=== PATIENT | female | born 1985 | race Caucasian/White ===

== ENCOUNTER 2017-11-11 08:17 | Emergency (ER) | payer SELFPAY ==
[2017-11-11] MEDS ORDERED: DEXAMETHASONE 10 MG/ML VIAL ONE (08:55)
--- NOTE | 2017-11-11 09:23 | ER ---
Nurse's Notes [facility] Name: Haley Mario Age: 32 yrs Sex: Female : 1985 Arrival Date: 11/11/2017 Time: 08:22 Bed 18 Private MD: Diagnosis: Acute pharyngitis Presentation: 11/11 08:33 Presenting complaint: Patient states: sore throat, congestion, fever, cough, clear to ch whitish sputum for the past 2 days. Transition of care: patient was not received from another setting of care. Onset of symptoms was November 09, 2017. Care prior to arrival: None. 08:33 Method Of Arrival: Ambulatory 08:33 Acuity: LILIBETH 4 ch Triage Assessment: 08:35 General: Appears in no apparent distress. comfortable, Behavior is calm, cooperative, ch appropriate for age. Pain: Complains of pain in throat Pain currently is 8 out of 10 on a pain scale. EENT: Oral mucosa is moist. Throat is reddened with gag reflex present, Reports nasal congestion nasal discharge pain when swallowing. Neuro: No deficits noted. Cardiovascular: No deficits noted. Respiratory: Airway is patent Respiratory effort is even, unlabored, Breath sounds are clear bilaterally. GI: No signs and/or symptoms were reported involving the gastrointestinal system. : No signs and/or symptoms were reported regarding the genitourinary system. Derm: Skin is pink, warm \T\ dry. Musculoskeletal: No signs and/or symptoms reported regarding the musculoskeletal system. 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 - Social history:: Smoking status: Patient/guardian denies using tobacco. Screenin:38 Abuse screen: Denies threats or abuse. Denies injuries from another. Nutritional ch screening: No deficits noted. Tuberculosis screening: No symptoms or risk factors identified. Fall Risk None identified. Assessment: 08:38 Reassessment: Patient appears in no apparent distress at this time. Patient and/or ch family updated on plan of care and expected duration. Pain level reassessed. Patient is alert, oriented x 3, equal unlabored respirations, skin warm/dry/pink. Respiratory: Airway is patent Respiratory effort is even, unlabored. 09:15 Reassessment: Patient appears in no apparent distress at this time. No changes from previously documented assessment. Patient and/or family updated on plan of care and expected duration. Pain level reassessed. Patient is alert, oriented x 3, equal unlabored respirations, skin warm/dry/pink. awaiting strep results. 09:40 Reassessment: Patient appears in no apparent distress at this time. No changes from previously documented assessment. Patient and/or family updated on plan of care and expected duration. Pain level reassessed. Patient is alert, oriented x 3, equal unlabored respirations, skin warm/dry/pink. Respiratory: Airway is patent Respiratory effort is even, unlabored, Breath sounds are clear bilaterally. Vital Signs: 08:35 BP 120 / 73; Pulse 90; Resp 16; Temp 98.5; Pulse Ox 99% on R/A; Weight 72.57 kg; Height ch 5 ft. 1 in. (154.94 cm); Pain 8/10; 09:15 BP 118 / 76; Pulse 84; Resp 15; Pulse Ox 99% on R/A; ch 08:35 Body Mass Index 30.23 (72.57 kg, 154.94 cm) ED Course: 08:22 Patient arrived in ED. mr 08:28 [facility] Parks [facility] jr8 08:28 Rickey Bronson MD is Attending Physician. jr8 08:33 Tiffany Saleh, JAZMIN is Primary Nurse. ch 08:34 Triage completed. ch 08:35 Arm band placed on left wrist. Patient placed in an exam room, on a stretcher. ch 08:38 No apparent distress. Resting quietly. ch 08:38 Patient has correct armband on for positive identification. Placed in gown. Bed in low position. Call light in reach. Side rails up X 1. Adult w/ patient. Pulse ox on. NIBP on. Warm blanket given. 08:38 No provider procedures requiring assistance completed. Patient did not have IV access ch during this emergency room visit. Administered Medications: 08:50 Drug: Decadron 10 mg Route: IM; Site: left gluteus; 09:16 Follow up: Response: No adverse reaction; Marked relief of symptoms 09:40 Drug: Viscous Lidocaine Liquid (4 %) 5 ml Route: Mucous Membrane; 09:40 Follow up: Response: No adverse reaction; Marked relief of symptoms Outcome: 09:22 Discharge ordered by MD. yanez 09:40 Discharged to home ambulatory, with family. 09:40 Condition: stable 09:40 Discharge instructions given to patient, family, Instructed on discharge instructions, follow up and referral plans. medication usage, Demonstrated understanding of instructions, follow-up care, medications, Prescriptions given X 2. 09:41 Patient left the ED. Signatures: Tiffany Saleh RN RN ch Rivera, Maria mr Roszak, Josh, PA PA jr8
--- NOTE | 2017-11-11 09:23 | EDPHYS ---
Physician Documentation [facility] Name: Haley Mario Age: 32 yrs Sex: Female : 1985 Arrival Date: 11/11/2017 Time: 08:22 Bed 18 Private MD: ED Physician Rickey Bronson HPI: 11/11 08:54 This 32 yrs old Female presents to ER via Ambulatory with complaints of Sore jr8 Throat, Fever. 08:54 The patient presents with sore throat. The patient describes throat pain as constant. jr8 Onset: The symptoms/episode began/occurred acutely, yesterday. Severity of symptoms: At their worst the symptoms were moderate, in the emergency department the symptoms are unchanged. Modifying factors: The symptoms are alleviated by nothing, the symptoms are aggravated by swallowing. Associated signs and symptoms: Pertinent positives: rhinorrhea. The patient has not experienced similar symptoms in the past. The patient has not recently seen a physician. 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 - Social history:: Smoking status: Patient/guardian denies using tobacco. ROS: 08:54 Eyes: Negative for injury, pain, redness, and discharge, Neck: Negative for injury, jr8 pain, and swelling, Cardiovascular: Negative for chest pain, palpitations, and edema, Respiratory: Negative for shortness of breath, cough, wheezing, and pleuritic chest pain, Abdomen/GI: Negative for abdominal pain, nausea, vomiting, diarrhea, and constipation, Back: Negative for injury and pain, MS/Extremity: Negative for injury and deformity, Skin: Negative for injury, rash, and discoloration, Neuro: Negative for headache, weakness, numbness, tingling, and seizure. 08:54 ENT: Positive for sore throat, Negative for drainage from ear(s), ear pain, tinnitus, nasal discharge, rhinorrhea, sinus congestion, sinus pain, difficulty swallowing, difficulty handling secretions, hoarseness. Exam: 08:54 Eyes: Pupils equal round and reactive to light, extra-ocular motions intact. Lids and jr8 lashes normal. Conjunctiva and sclera are non-icteric and not injected. Cornea within normal limits. Periorbital areas with no swelling, redness, or edema. Neck: Trachea midline, no thyromegaly or masses palpated, and no cervical lymphadenopathy. Supple, full range of motion without nuchal rigidity, or vertebral point tenderness. No Meningismus. Cardiovascular: Regular rate and rhythm with a normal S1 and S2. No gallops, murmurs, or rubs. Normal PMI, no JVD. No pulse deficits. Respiratory: Lungs have equal breath sounds bilaterally, clear to auscultation and percussion. No rales, rhonchi or wheezes noted. No increased work of breathing, no retractions or nasal flaring. Abdomen/GI: Soft, non-tender, with normal bowel sounds. No distension or tympany. No guarding or rebound. No evidence of tenderness throughout. Back: No spinal tenderness. No costovertebral tenderness. Full range of motion. Skin: Warm, dry with normal turgor. Normal color with no rashes, no lesions, and no evidence of cellulitis. MS/ Extremity: Pulses equal, no cyanosis. Neurovascular intact. Full, normal range of motion. Neuro: Awake and alert, GCS 15, oriented to person, place, time, and situation. Cranial nerves II-XII grossly intact. Motor strength 5/5 in all extremities. Sensory grossly intact. Cerebellar exam normal. Normal gait. 08:54 ENT: Exam is negative for earache, ear discharge, TM abnormalities, nasal discharge, Mouth: Lips: moist, Oral mucosa: pink and intact, moist, Gums: pink, Tongue: is moist, Posterior pharynx: Airway: patent, Tonsils: bilaterally enlarged, with erythema, with exudate, no ulcerations, Uvula: midline, non-edematous, no erythema, swelling, is not appreciated, erythema, that is moderate. Vital Signs: 08:35 BP 120 / 73; Pulse 90; Resp 16; Temp 98.5; Pulse Ox 99% on R/A; Weight 72.57 kg; Height ch 5 ft. 1 in. (154.94 cm); Pain 8/10; 09:15 BP 118 / 76; Pulse 84; Resp 15; Pulse Ox 99% on R/A; 08:35 Body Mass Index 30.23 (72.57 kg, 154.94 cm) MDM: 08:44 Patient medically screened. jr8 09:21 Data reviewed: vital signs, nurses notes, lab test result(s), and as a result, I will jr8 discharge patient. Data interpreted: Pulse oximetry: on room air is 99 %. Interpretation: normal. Counseling: I had a detailed discussion with the patient and/or guardian regarding: the historical points, exam findings, and any diagnostic results supporting the discharge/admit diagnosis, the need for outpatient follow up, a family practitioner, to return to the emergency department if symptoms worsen or persist or if there are any questions or concerns that arise at home. 11/11 08:44 Order name: Strep; Complete Time: 09:21 jr8 11/11 09:20 Order name: Throat Culture EDMS Administered Medications: 08:50 Drug: Decadron 10 mg Route: IM; Site: left gluteus; 09:16 Follow up: Response: No adverse reaction; Marked relief of symptoms 09:40 Drug: Viscous Lidocaine Liquid (4 %) 5 ml Route: Mucous Membrane; 09:40 Follow up: Response: No adverse reaction; Marked relief of symptoms Disposition: 11:32 Co-signature as Attending Physician, Rickey Bronson MD. rn Disposition: 11/11/17 09:22 Discharged to Home. Impression: Acute pharyngitis. - Condition is Stable. - Discharge Instructions: Pharyngitis. - Prescriptions for Augmentin 875- 125 mg Oral Tablet - take 1 tablet by ORAL route every 12 hours for 10 days; 20 tablet. Tessalon Perles 100 mg Oral Capsule - take 1 capsule by ORAL route every 8 hours As needed; 15 capsule. - Work release form, Medication Reconciliation Form, Thank You Letter, Antibiotic Education, Prescription Opioid Use form. - Follow up: Private Physician; When: 5 - 6 days; Reason: Recheck today's complaints, Continuance of care, Re-evaluation by your physician. - Problem is new. - Symptoms have improved. Signatures: Dispatcher [employer] EDMS Tiffany Saleh RN RN ch Nieto, Roman, MD MD rn Roszak, Josh, PA [place] jr8
[2017-11-11] MEDS ORDERED: LIDOCAINE VISCOUS 2% SOLN 15 ML UDC ONE (09:28)
== END 2017-11-11 09:41 | disposition home or self-care (01) ==
LOC: ER 08:17
DX: J02.9 Acute pharyngitis, unspecified (principal); Z88.7 Allergy status to serum and vaccine
CPT/HCPCS: 87070; 87081; 96372; 99283; J1100

== ENCOUNTER 2021-12-26 08:18 | Emergency (ER) | payer OTHER, SELFPAY ==
--- NOTE | 2021-12-26 09:18 | RAD REPORT ---
EXAM DESCRIPTION: RAD - C Spine Ap/Lat - 12/26/2021 9:08 am CLINICAL HISTORY: neck pain, right arm pain COMPARISON: No comparisons FINDINGS: No acute fracture. No malalignment. Mild disc height loss at C4-5 and C5-6 with minimal en dplate spurring. IMPRESSION: No acute osseous abnormality involving the cervical spine.
--- NOTE | 2021-12-26 09:24 | EDPHYS ---
Physician Documentation [facility] Name: Haley Mario Age: 36 yrs Sex: Female : 1985 Arrival Date: 12/26/2021 Time: 08:25 Bed 11 Private MD: ED Physician Rickey Bronson HPI: 12/26 08:50 This 36 yrs old Female presents to ER via Ambulatory with complaints of Arm Pain, Hand jmm Swelling. 08:50 The patient or guardian complains of pain. Onset: The symptoms/episode began/occurred jmm gradually, 1 day(s) ago. Modifying factors: The symptoms are alleviated by nothing. the symptoms are aggravated by movement, lifting weight. This is a 36-year-old female with history of bronchitis the presents emerged part with complaints of right-sided neck pain which radiates down the entire arm. Symptoms began 1 day ago. Patient states she has numbness and tingling to the right hand. Patient states this is happened to her in the past with a diagnosis of carpal tunnel syndrome.. Historical: - Allergies: 08:50 flu shots; ss - PMHx: 08:50 Bronchitis; Pneumonia; ss - Immunization history:: Client reports receiving the 2nd dose of the Covid vaccine. - Social history:: Smoking status: Patient denies any tobacco usage or history of. ROS: 08:50 Constitutional: Negative for fever, chills, and weight loss, Cardiovascular: Negative jmm for chest pain, palpitations, and edema, Respiratory: Negative for shortness of breath, cough, wheezing, and pleuritic chest pain. 08:50 Neck: Positive for pain with movement. 08:50 MS/extremity: Positive for pain. 08:50 All other systems are negative. Exam: 08:50 Constitutional: This is a well developed, well nourished patient who is awake, alert, jmm and in no acute distress. Head/Face: atraumatic. Eyes: EOMI, no conjunctival erythema appreciated ENT: Moist Mucus Membranes Neck: Trachea midline, Supple Chest/axilla: Normal chest wall appearance and motion. Cardiovascular: Regular rate and rhythm. No edema appreciated Respiratory: Normal respirations, no respiratory distress appreciated Abdomen/GI: Non distended, soft Back: Normal ROM Skin: General appearance color normal 08:50 Back: Right trapezius right trapezius pain appreciated on palpation, symptoms are exacerbated with pain descending down the right arm. 08:50 Musculoskeletal/extremity: ROM: intact in all extremities. 08:50 Skin: Appearance: Color: normal in color. 08:50 Neuro: Motor: is normal. 08:50 Psych: Behavior/mood is pleasant, cooperative. Vital Signs: 08:49 BP 109 / 69; Pulse 81; Resp 16; Temp 97.8(TE); Pulse Ox 100% on R/A; Weight 108.86 kg; ss Height 5 ft. 1 in. (154.94 cm); 08:49 Body Mass Index 45.35 (108.86 kg, 154.94 cm) ss MDM: 08:50 Patient medically screened. [facility] 09:23 Data reviewed: vital signs, nurses notes. Counseling: I had a detailed discussion with dayana the patient and/or guardian regarding: the historical points, exam findings, and any diagnostic results supporting the discharge/admit diagnosis, radiology results, the need for outpatient follow up, to return to the emergency department if symptoms worsen or persist or if there are any questions or concerns that arise at home. 12/26 08:51 Order name: C Spine Ap/Lat XRAY; Complete Time: 09:20 [facility] Administered Medications: 10:06 Drug: Ketorolac 30 mg Route: IM; Site: left deltoid; iw 10:48 Follow up: Response: No adverse reaction Disposition: 12:43 Co-signature as Attending Physician, Rickey Bronson MD. rn Disposition Summary: 12/26/21 09:23 Discharge Ordered Location: Home [facility] Condition: Stable [facility] Diagnosis - Radiculopathy, cervical region [facility] Followup: [facility] - With: Private Physician - When: 2 - 3 days - Reason: Recheck today's complaints, Continuance of care, Re-evaluation by your physician Discharge Instructions: - Discharge Summary Sheet [facility] - Cervical Radiculopathy [facility] Forms: - Medication Reconciliation Form [facility] - Thank You Letter [facility] - Antibiotic Education [facility] - Prescription Opioid Use [facility] - Work release form Prescriptions: - Ultracet 37.5-325 mg Oral Tablet - take 1 tablet by ORAL route every 6 hours - for up to 5 days; do not exceed 8 jmm tablets per day.; 12 tablet; Refills: 0, Product Selection Permitted - Zanaflex 4 mg Oral Tablet - take 1 tablet by ORAL route every 8 hours As needed; 20 tablet; Refills: 0, champ Product Selection Permitted - Prednisone 20 mg Oral Tablet - take 3 tablets by ORAL route once daily for 5 days; 15 tablet; Refills: 0, champ Product Selection Permitted Signatures: Dispevetteer [employer] Denis Varghese PA PA jmm Williams, Irene, RN RN iw Nieto, Roman, MD MD rn Smirch, Shelby, RN RN ss
--- NOTE | 2021-12-26 09:24 | ER ---
Nurse's Notes [facility] Name: Haley Mario Age: 36 yrs Sex: Female : 1985 Arrival Date: 12/26/2021 Time: 08:25 Bed 11 Private MD: Diagnosis: Radiculopathy, cervical region Presentation: 12/26 08:49 Chief complaint: Patient states: R arm pain that began this morning. No injury. Pt ss states, "I woke up this morning and it was numb, now it hurts.". Coronavirus screen: Client denies travel out of the [place] in the last 14 days. Ebola Screen: Patient denies exposure to infectious person. Patient denies travel to an Ebola-affected area in the 21 days before illness onset. Initial Sepsis Screen: Does the patient meet any 2 criteria? No. Patient's initial sepsis screen is negative. Does the patient have a suspected source of infection? No. Patient's initial sepsis screen is negative. Risk Assessment: Do you want to hurt yourself or someone else? Patient reports no desire to harm self or others. Onset of symptoms was December 26, 2021. 08:49 Method Of Arrival: Ambulatory ss 08:49 Acuity: LILIBETH 4 ss Historical: - Allergies: 08:50 flu shots; ss - PMHx: 08:50 Bronchitis; Pneumonia; ss - Immunization history:: Client reports receiving the 2nd dose of the Covid vaccine. - Social history:: Smoking status: Patient denies any tobacco usage or history of. Screenin:47 Abuse screen: Denies threats or abuse. Denies injuries from another. Nutritional ss screening: No deficits noted. Tuberculosis screening: Never had TB. Fall Risk None identified. Assessment: 10:47 General: Appears in no apparent distress. Behavior is calm, cooperative, Denies fever, ss feeling ill. Pain: Complains of pain in R arm Pain currently is 8 out of 10 on a pain scale. Quality of pain is described as tender. Neuro: Brewster Agitation-Sedation Scale (RASS): 0 - Alert and Calm Level of Consciousness is awake, alert, obeys commands, Oriented to person, place, time, situation. Cardiovascular: Capillary refill < 3 seconds is brisk in bilateral fingers. Respiratory: Airway is patent Respiratory effort is even, unlabored, Respiratory pattern is regular, symmetrical. Derm: Skin is intact, is healthy with good turgor, Skin is pink, warm \\T\\ dry. normal. Vital Signs: 08:49 BP 109 / 69; Pulse 81; Resp 16; Temp 97.8(TE); Pulse Ox 100% on R/A; Weight 108.86 kg; ss Height 5 ft. 1 in. (154.94 cm); 08:49 Body Mass Index 45.35 (108.86 kg, 154.94 cm) ED Course: 08:25 Patient arrived in ED. rg4 08:25 Denis Phelan PA is PHCP. [facility] 08:25 Rickey Bronson MD is Attending Physician. [facility] 08:50 Triage completed. ss 08:50 Arm band placed on right wrist. ss 09:10 C Spine Ap/Lat XRAY In Process Unspecified. EDMS 10:06 Inocencia Torres, RN is Primary Nurse. iw 10:46 No provider procedures requiring assistance completed. Patient did not have IV access ss during this emergency room visit. 10:47 Patient has correct armband on for positive identification. Bed in low position. ss Administered Medications: 10:06 Drug: Ketorolac 30 mg Route: IM; Site: left deltoid; iw 10:48 Follow up: Response: No adverse reaction ss Medication: 10:47 VIS not applicable for this client. Outcome: 09:23 Discharge ordered by . [facility] 10:46 Discharged to home 10:46 Condition: good 10:46 Discharge instructions given to patient, Instructed on discharge instructions, follow up and referral plans. medication usage, Demonstrated understanding of instructions, follow-up care, Prescriptions given X 3. 10:48 Patient left the ED. Signatures: Dispatcher [employer] EDMS Denis Phelan PA PA jmm Williams, Irene, RN JAZMIN Miya Duran RN RN ss Garcia, Rubi rg4
[2021-12-26] MEDS ORDERED: KETOROLAC 30 MG/ML INJ ONE (09:52)
[2021-12-26 11:24] VITALS: BP 109/69; TEMP 97.8; O2SAT 100
== END 2021-12-26 10:48 | disposition home or self-care (01) ==
LOC: ER 08:18
DX: M54.12 Radiculopathy, cervical region (principal); Z88.7 Allergy status to serum and vaccine
CPT/HCPCS: 72040; 96372; 99283

== ENCOUNTER 2022-03-01 08:43 | Emergency (ER) | payer OTHER ==
--- NOTE | 2022-03-01 10:11 | RAD REPORT ---
EXAM DESCRIPTION: RAD - Chest Single View - 03/01/2022 9:47 am CLINICAL HISTORY: COUGH COMPARISON: No comparisons FINDINGS: Lines: None. Lungs: No evidence of edema or pneumonia. Pleural: No significant pleural effusions or pneumothorax. Cardiac: The heart size is within normal limits. Bones: No acute fractures. Other: IMPRESSION: No acute cardiopulmonary disease.
--- NOTE | 2022-03-01 11:36 | EDPHYS ---
Physician Documentation [facility] Name: Haley Mario Age: 37 yrs Sex: Female : 1985 Arrival Date: 03/01/2022 Time: 08:47 Bed Waiting Private MD: ED Physician Jorge Alvarado HPI: 03/01 09:00 This 37 yrs old Female presents to ER via Ambulatory with complaints of Needs Covid jh7 Test. 09:00 Onset: The symptoms/episode began/occurred February 21. Patient states she is feeling jh7 better but is concerned she has developed bronchitis because she has a productive cough. Denies fever, body aches, or shortness of breath.. 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 - Social history:: Smoking status: . ROS: 09:00 ENT: Negative for injury, pain, and discharge, Neck: Negative for injury, pain, and jh7 swelling, Cardiovascular: Negative for chest pain, palpitations, and edema, Abdomen/GI: Negative for abdominal pain, nausea, vomiting, diarrhea, and constipation, Back: Negative for injury and pain, Skin: Negative for injury, rash, and discoloration, Neuro: Negative for headache, weakness, numbness, tingling, and seizure. 09:00 Constitutional: Positive for fatigue, Negative for body aches, chills, fever. 09:00 Respiratory: Positive for cough, Negative for shortness of breath, wheezing. 09:00 All other systems are negative. Exam: 09:00 Constitutional: This is a well developed, well nourished patient who is awake, alert, jh7 and in no acute distress. Eyes: Pupils equal round and reactive to light, extra-ocular motions intact. Lids and lashes normal. Conjunctiva and sclera are non-icteric and not injected. Cornea within normal limits. Periorbital areas with no swelling, redness, or edema. Cardiovascular: Regular rate and rhythm with a normal S1 and S2. No gallops, murmurs, or rubs. Normal PMI, no JVD. No pulse deficits. Abdomen/GI: Soft, non-tender, with normal bowel sounds. No distension or tympany. No guarding or rebound. No evidence of tenderness throughout. Back: No spinal tenderness. No costovertebral tenderness. Full range of motion. Skin: Warm, dry with normal turgor. Normal color with no rashes, no lesions, and no evidence of cellulitis. Neuro: Awake and alert, GCS 15, oriented to person, place, time, and situation. Motor strength 5/5 in all extremities. Sensory grossly intact. Normal gait. 09:00 ENT: TM's: are normal, Posterior pharynx: Post post nasal drainage. 09:00 Respiratory: the patient does not display signs of respiratory distress, Respirations: normal, Breath sounds: are clear throughout, Wet cough noted on exam. Vital Signs: 09:00 BP 117 / 51; Pulse 72; Resp 16; Temp 97.4; Pulse Ox 100% on R/A; iw MDM: 11:36 Patient medically screened. [facility] 11:42 Differential diagnosis: viral Infection, bacterial infection, bronchitis, pneumonia. [facility] Data reviewed: vital signs, nurses notes, lab test result(s). Data interpreted: Pulse oximetry: is 100 %. Interpretation: normal. Counseling: I had a detailed discussion with the patient and/or guardian regarding: the historical points, exam findings, and any diagnostic results supporting the discharge/admit diagnosis, to return to the emergency department if symptoms worsen or persist or if there are any questions or concerns that arise at home. 03/01 09:05 Order name: SARS-COV-2 RT PCR (Document "Date of Onset" if Symptomatic); Complete Time: iw 11:44 03/01 09:01 Order name: Chest Single View XRAY; Complete Time: 10:13 [facility] Administered Medications: No medications were administered Disposition Summary: 03/01/22 11:36 Discharge Ordered Location: Home [facility] Problem: new [facility] Symptoms: have improved [facility] Condition: Stable [facility] Diagnosis - Coronavirus infection, unspecified [facility] Followup: [facility] - With: Private Physician - When: 2 - 3 days - Reason: Recheck today's complaints Discharge Instructions: - Discharge Summary Sheet [facility] - COVID-19 [facility] - COVID-19 Frequently Asked Questions [facility] - 10 Things You Can Do to Manage Your COVID-19 Symptoms at Home - [place] [id number] Forms: - Medication Reconciliation Form [facility] - Thank You Letter [facility] Prescriptions: - Bromfed DM 2-30-10 mg/5 mL Oral syrup - take 10 milliliter by ORAL route every 4 hours As needed; 240 milliliter; [facility] Refills: 0, Product Selection Permitted - ProAir HFA 90 mcg/actuation Inhalation HFA aerosol inhaler - inhale 2 puff by INHALATION route every 4-6 hours As needed; 1 puff; Refills: [facility] 0, Product Selection Permitted Signatures: Dispevetteer [employer] Inocencia العراقي, JAZMIN RN Mary Smith FNP FRONT END ENGINEER [facility]
--- NOTE | 2022-03-01 11:36 | ER ---
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 Coronavirus iw screen: Client presents with at least one sign or symptom that may indicate coronavirus-19. Ebola Screen: Patient negative for fever greater than or equal to 101.5 degrees Fahrenheit, and additional compatible Ebola Virus Disease symptoms Patient denies exposure to infectious person. Patient denies travel to an Ebola-affected area in the 21 days before illness onset. No symptoms or risks identified at this time. Initial Sepsis Screen: Does the patient meet any 2 criteria? No. Patient's initial sepsis screen is negative. Does the patient have a suspected source of infection? No. Patient's initial sepsis screen is negative. Risk Assessment: Do you want to hurt yourself or someone else? Patient reports no desire to harm self or others. 08:53 Method Of Arrival: Ambulatory iw 08:53 Acuity: LILIBETH 4 iw 09:15 Onset of symptoms was March 01, 2022. 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 - Social history:: Smoking status: . Screenin:01 Abuse screen: Denies threats or abuse. Denies injuries from another. Nutritional iw screening: No deficits noted. Tuberculosis screening: No symptoms or risk factors identified. 09:10 Fall Risk None identified. iw Assessment: 09:01 General: Appears in no apparent distress. Behavior is calm, cooperative. Pain: Denies iw pain. Neuro: Brewster Agitation-Sedation Scale (RASS): Level of Consciousness is awake, alert, obeys commands, Oriented to person, place, time, situation, Moves all extremities. Full function. Cardiovascular: Patient's skin is warm and dry. Respiratory: Reports cough that is Respiratory effort is even, unlabored, Respiratory pattern is regular. Derm: Skin is intact, is healthy with good turgor. Musculoskeletal: Range of motion: intact in all extremities. Vital Signs: 09:00 BP 117 / 51; Pulse 72; Resp 16; Temp 97.4; Pulse Ox 100% on R/A; iw ED Course: 02/28 09:30 Patient has correct armband on for positive identification. iw 03/01 08:47 Patient arrived in ED. rg4 08:54 Triage completed. iw 08:55 Mary Schmidt FNP [facility] 08:55 Jorge Alvarado MD is Attending Physician. [facility] 09:00 Inocencia Torres, RN is Primary Nurse. iw 09:00 Arm band placed on. iw 09:49 Chest Single View XRAY In Process Unspecified. EDMS 11:42 No provider procedures requiring assistance completed. Patient did not have IV access iw during this emergency room visit. Administered Medications: No medications were administered Medication: 09:15 VIS not applicable for this client. iw Outcome: 11:36 Discharge ordered by . [facility] 11:42 Discharged to home ambulatory. iw 11:42 Condition: good 11:42 Discharge instructions given to patient, Instructed on discharge instructions, follow up and referral plans. Demonstrated understanding of instructions, follow-up care, medications, Prescriptions given X 2. 11:43 Patient left the ED. Signatures: Dispatcher [employer] EDMS Inocencia Torres RN RN iw Garcia, Rubi 4 Mary Schmidt FNP PROPRIETARY TRADER [facility] Corrections: (The following items were deleted from the chart) 09:01 09:00 Pulse 72bpm; Resp 16bpm; Pulse Ox 100% RA; Temp 97.4F; iw iw 09:02 09:00 Pulse 72bpm; Resp 16bpm; Pulse Ox 100% RA; Temp 97.4F; iw iw
[2022-03-01 11:48] VITALS: BP 117/51; TEMP 97.4; O2SAT 100
== END 2022-03-01 11:43 | disposition home or self-care (01) ==
LOC: ER 08:43
DX: U07.1 COVID-19 (principal); Z88.7 Allergy status to serum and vaccine
CPT/HCPCS: 71045; U0003; 99283

== ENCOUNTER 2022-03-14 18:08 | Emergency (ER) | payer OTHER ==
[2022-03-14] MEDS ORDERED: IBUPROFEN 200 MG TAB PO ONE (18:49)
[2022-03-14] MEDS ORDERED: AMOX/K CLAV 875 MG TAB ONE (18:50)
[2022-03-14] MEDS ORDERED: TETANUS & DIPHTHERIA TOX,ADULT 0.5 ML VIAL ONE (19:51)
--- NOTE | 2022-03-14 19:57 | RAD REPORT ---
EXAM DESCRIPTION: RAD - Forearm Right - 03/14/2022 7:50 pm CLINICAL HISTORY: PAIN COMPARISON: No comparisons FINDINGS: No fracture, dislocation or radiopaque foreign body.
--- NOTE | 2022-03-14 20:06 | EDPHYS ---
Physician Documentation [facility] Name: Haley Mario Age: 37 yrs Sex: Female : 1985 Arrival Date: 03/14/2022 Time: 18:09 Bed 12 Private MD: ED Physician Angel Osborn HPI: 03/14 19:00 This 37 yrs old Female presents to ER via Ambulatory with complaints of Dog Bite. ms3 19:00 The patient was bitten on the right arm. Onset: The symptoms/episode began/occurred 4 ms3 hour(s) ago. Animal information: The animal was reported to appear healthy. Animal's vaccinations are up to date. The animal is known and can be quarantined, Animal control has not been notified. Secondary to the bite the patient reports multiple puncture wounds, that are deep. Associated signs and symptoms: The patient has no apparent associated signs or symptoms. Severity of symptoms: At their worst the symptoms were moderate, in the emergency department the symptoms are unchanged. 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 - Social history:: Smoking status: Patient/guardian denies using tobacco products. ROS: 19:00 Constitutional: Negative for fever, and chills. Neck: Negative for injury, pain, and ms3 swelling, Cardiovascular: Negative for chest pain, and palpitations. Respiratory: Negative for shortness of breath, cough, wheezing, and pleuritic chest pain, Abdomen/GI: Negative for abdominal pain, nausea, vomiting, diarrhea, and constipation, MS/Extremity: Negative for injury and deformity, Hematologic/Lymphatic: Negative for swollen nodes, abnormal bleeding, and unusual bruising. 19:00 MS/extremity: Positive for puncture. 19:00 Skin: Positive for puncture. 19:00 All other systems are negative. Exam: 19:00 Constitutional: This is a well developed, well nourished patient who is awake, alert, ms3 and in no acute distress. Head/Face: Normocephalic, atraumatic. Chest/axilla: Normal chest wall appearance and motion. Nontender with no deformity. Cardiovascular: Regular rate and rhythm with a normal S1 and S2. No gallops, murmurs, or rubs. Normal PMI, no JVD. No pulse deficits. Respiratory: Lungs have equal breath sounds bilaterally, clear to auscultation and percussion. No rales, rhonchi or wheezes noted. No increased work of breathing, no retractions or nasal flaring. Abdomen/GI: Soft, non-tender, with normal bowel sounds. No distension or tympany. No guarding or rebound. No evidence of tenderness throughout. Psych: Awake, alert, with orientation to person, place and time. Behavior, mood, and affect are within normal limits. 19:00 Skin: injury, puncture(s), that are deep, of the right arm. ms3 Vital Signs: 18:33 BP 133 / 97; Pulse 90; Resp 16; Temp 98.7; Pulse Ox 100% on R/A; Weight 110.68 kg (R); bm7 Height 5 ft. 1 in. (154.94 cm); Pain 8/10; 18:33 Body Mass Index 46.10 (110.68 kg, 154.94 cm) bm7 MDM: 19:00 Differential diagnosis: superficial laceration, Retained FB vs Fracture. Rabies Status: ms3 Rabies immunization is not indicated. Data reviewed: vital signs, nurses notes, radiologic studies, and as a result, I will discharge patient. Transition of care: After a detail discussion of the patient's case, care is transferred to Angel Osborn MD. 19:57 ED course: Patient signed out to me for x-ray review. X-ray demonstrates no fracture or sp3 foreign body. Patient will be discharged per original attending's instructions with Augmentin and PCP follow-up.. 20:05 Patient medically screened. sp3 03/14 18:36 Order name: Forearm Right XRAY; Complete Time: 22:29 ms3 Administered Medications: 18:46 Drug: Augmentin (Amoxicillin-Clavulanate) 875 mg Route: PO; iw 21:04 Follow up: Response: No adverse reaction as6 18:46 Drug: Ibuprofen 600 mg Route: PO; iw 21:04 Follow up: Response: No adverse reaction as6 19:48 Drug: Tetanus-Diphtheria Toxoid Adult 0.5 ml {Merchandising Lead: [employer]. Exp: as6 12/08/2023. Lot #: [id number]. } Route: IM; Site: left deltoid; 21:04 Follow up: Response: (VIS) Vaccine information sheet provided today. Questions and/or as6 concerns addressed. VIS edition date: Mar 09, 2021.; No adverse reaction Disposition Summary: 03/14/22 20:05 Discharge Ordered Location: Home sp3 Condition: Stable sp3 Diagnosis - Bitten by dog sp3 - Puncture wound without foreign body of forearm sp3 Followup: ms3 - With: - When: 2 - 3 days - Reason: Recheck today's complaints Discharge Instructions: - Discharge Summary Sheet ms3 - Animal Bite, Adult, [id number] ms3 Forms: - Medication Reconciliation Form sp3 - Thank You Letter sp3 - Antibiotic Education sp3 - Work release form tw5 - Prescription Opioid Use sp3 Prescriptions: - Augmentin 875-125 mg Oral Tablet - take 1 tablet by ORAL route every 12 hours for 10 days; 20 tablet; Refills: 0, ms3 Product Selection Permitted Signatures: Dispatcher [employer] Inocencia العراقي, RN RN iw Hogler Ramírez DO DO ms3 Kristen Charles, RN RN bm7 Angel Osborn MD MD sp3 Fausto Rendon, JAZMIN RN as6
--- NOTE | 2022-03-14 20:06 | ER ---
Nurse's Notes [facility] Name: Haley Mario Age: 37 yrs Sex: Female : 1985 Arrival Date: 03/14/2022 Time: 18:09 Bed 12 Private MD: Diagnosis: Bitten by dog;Puncture wound without foreign body of forearm Presentation: 03/14 18:33 Chief complaint: Patient states: I was bitten by a pit bull while I was at work. I just bm7 wanted to get it checked out. 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 Coronavirus screen: At this time, the client does not indicate any symptoms associated with coronavirus-19. Ebola Screen: No symptoms or risks identified at this time. Initial Sepsis Screen: Does the patient meet any 2 criteria? No. Patient's initial sepsis screen is negative. Does the patient have a suspected source of infection? No. Patient's initial sepsis screen is negative. Risk Assessment: Do you want to hurt yourself or someone else? Patient reports no desire to harm self or others. Onset of symptoms was March 14, 2022 at 15:00. 18:33 Method Of Arrival: Ambulatory [facility] 18:33 Acuity: LILIBETH 4 bm7 Triage Assessment: 18:38 Bite description: bite sustained to dorsal aspect of right forearm is superficial, was bm7 sustained 2-4 hours ago. by a dog, animal information: vaccination(s) is unknown, [employer] called to report incident. General: Appears in no apparent distress. comfortable, Behavior is calm, cooperative, appropriate for age. Pain: Complains of pain in right arm Pain does not radiate. EENT: No deficits noted. No signs and/or symptoms were reported regarding the EENT system. Neuro: No deficits noted. Cardiovascular: No deficits noted. Respiratory: No deficits noted. GI: No deficits noted. No signs and/or symptoms were reported involving the gastrointestinal system. : No deficits noted. No signs and/or symptoms were reported regarding the genitourinary system. Derm: Skin is intact, is healthy with good turgor, Skin is dry, Skin is pink, warm \T\ dry. Skin temperature is warm. Musculoskeletal: No deficits noted. No signs and/or symptoms reported regarding the musculoskeletal system. Injury Description: Bite sustained to right arm caused by a dog. 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 - Social history:: Smoking status: Patient/guardian denies using tobacco products. Screenin:06 Abuse screen: Denies threats or abuse. Denies injuries from another. Nutritional tw5 screening: No deficits noted. Tuberculosis screening: No symptoms or risk factors identified. Fall Risk None identified. Assessment: 18:46 General: Appears in no apparent distress. Behavior is calm, cooperative. iw Vital Signs: 18:33 BP 133 / 97; Pulse 90; Resp 16; Temp 98.7; Pulse Ox 100% on R/A; Weight 110.68 kg (R); bm7 Height 5 ft. 1 in. (154.94 cm); Pain 8/10; 18:33 Body Mass Index 46.10 (110.68 kg, 154.94 cm) bm7 ED Course: 18:09 Patient arrived in ED. ja2 18:29 Holger Ramírez DO is Attending Physician. ms3 18:38 Triage completed. bm7 18:38 Arm band placed on left wrist. bm7 18:46 Inocencia Torres, RN is Primary Nurse. iw 19:17 Attending Physician role handed off by Holger Ramírez DO sp3 19:17 Angel Osborn MD is Attending Physician. sp3 19:29 Fausto Rendon, JAZMIN is Primary Nurse. as6 19:52 Forearm Right XRAY In Process Unspecified. EDMS 20:05 Erick Osborn DO is Referral Physician. sp3 20:06 Patient has correct armband on for positive identification. tw5 20:06 No provider procedures requiring assistance completed. Patient did not have IV access tw5 during this emergency room visit. Administered Medications: 18:46 Drug: Augmentin (Amoxicillin-Clavulanate) 875 mg Route: PO; iw 21:04 Follow up: Response: No adverse reaction as6 18:46 Drug: Ibuprofen 600 mg Route: PO; iw 21:04 Follow up: Response: No adverse reaction as6 19:48 Drug: Tetanus-Diphtheria Toxoid Adult 0.5 ml {Acrobatic Rigger: [employer]. Exp: as6 12/08/2023. Lot #: [id number]. } Route: IM; Site: left deltoid; 21:04 Follow up: Response: (VIS) Vaccine information sheet provided today. Questions and/or as6 concerns addressed. VIS edition date: Mar 09, 2021.; No adverse reaction Medication: 21:05 Vaccine Information Statement (VIS) provided today. Questions and/or concerns as6 addressed. VIS edition date: March 09, 2021. Outcome: 20:05 Discharge ordered by . sp3 20:06 Discharged to home ambulatory. tw5 20:06 Condition: good 20:06 Discharge instructions given to patient, Instructed on discharge instructions, follow up and referral plans. Demonstrated understanding of instructions, follow-up care, medications, Prescriptions given X 1. 20:07 Patient left the ED. tw5 Signatures: Dispatcher [employer] EDMS Inocencia Torres RN RN iw Holger Ramírez DO DO ms3 Kristen Charles, RN RN bm7 Angle Osborn MD MD sp3 Agustina Valdes Tiffany tw5 Fausto Rendon, JAZMIN RN as6 Corrections: (The following items were deleted from the chart) 21:05 20:07 VIS not applicable for this client. tw5 as6
[2022-03-14 23:15] VITALS: BP 133/97; TEMP 98.7; O2SAT 100
== END 2022-03-14 20:07 | disposition home or self-care (01) ==
LOC: ER 18:08
DX: S51.831A Puncture wound without foreign body of right forearm, initial encounter (principal); W54.0XXA Bitten by dog, initial encounter; Z23 Encounter for immunization; Z88.7 Allergy status to serum and vaccine
CPT/HCPCS: 90471; 90714; 99283